=== PATIENT | female | born 1965 | race Hispanic/Latino ===

== ENCOUNTER 2016-09-02 17:12 | Emergency (ER) | payer SELFPAY ==
[2016-09-02 17:25] VITALS: TEMP 97.9; O2SAT 96
[2016-09-02] MEDS ORDERED: MAGNESIUM HYDROXIDE 30 ML UD PO ONE (17:57)
--- NOTE | 2016-09-02 18:36 | ED.PDOC ---
History of Present Illness - General Chief Complaint: Abdominal Pain Stated Complaint: lower abdominal pain radiating to right back Time Seen by Provider: 09/02/16 17:22 Source: patient Exam Limitations: no limitations - History of Present Illness Initial Comments: the patient is a 50-year-old female presenting to the emergency room secondary to right sided abdominal discomfortfor the last 4 or 5 days. Pain is somewhat roving and intermittent. No nausea or voomiting. No fever. Pain is a little worse with movement. No syncope or near-syncope. No rash. No central back pain. No recent injuries. No dysuria or frequency. No medication changes. Timing/Duration: 1 week Severity: mild Improving Factors: nothing Worsening Factors: movement Associated Symptoms: denies symptoms Allergies/Adverse Reactions: Allergies NO KNOWN ALLERGY Allergy (Verified 09/02/16 17:25) Home Medications: Ambulatory Orders ALPRAZolam [Xanax] 0.25 mg PO PRN 09/02/16 Citalopram Hydrobromide 20 mg PO DAILY 09/02/16 Glipizide 10 mg PO BID 09/02/16 Lisinopril 10 mg PO DAILY 09/02/16 Metformin HCl [Metformin HCl ER] 1,000 mg PO BID 09/02/16 Review of Systems - Review of Systems Constitutional: States: no symptoms reported EENTM: States: no symptoms reported Respiratory: States: no symptoms reported Cardiology: States: no symptoms reported Gastrointestinal/Abdominal: States: see HPI Genitourinary: States: no symptoms reported Musculoskeletal: States: no symptoms reported Skin: States: no symptoms reported Neurological: States: no symptoms reported Endocrine: States: no symptoms reported All other Systems: No Change from Baseline Past Medical History (General) - Patient Medical History Hx Congestive Heart Failure: No Hx Hypertension: Yes Hx Diabetes: No - Vaccination History Hx Influenza Vaccination: Yes - Social History Hx Tobacco Use: No Family Medical History - Family History Mother Family History: Unknown Living Status: Unknown Physical Exam - Physical Exam General Appearance: Alert, Comfortable, No apparent distress Eye Exam: bilateral normal Ears, Nose, Throat: hearing grossly normal, normal ENT inspection, normal pharynx Neck: non-tender, full range of motion, supple Respiratory: chest non-tender, lungs clear, normal breath sounds, no respiratory distress, no accessory muscle use Cardiovascular/Chest: normal peripheral pulses, regular rate, rhythm, no edema Peripheral Pulses: radial,right: 2+, radial,left: 2+, dorsalis pedis,right: 2+, dorsalis pedis,left: 2+, posterior tibialis,right: 2+, posterior tibialis,left: 2+ Gastrointestinal/Abdominal: soft, other - mild diffuse right sided discomfort palpation. No rebound or peritoneal signs. No point tenderness. 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 Lab work is reassuring. She does have some mild hematuria. X-ray shows significant constipation. Her pain clinically seems most consistent with constipation. There is a possibility of her passing a small kidney stone giving her this pain. I do recommend that she have a repeat urinalysis with her primary care doctor later this week. She was given a dose of milk of magnesia here from constipation and she should take a dose of MiraLAX daily for the next 2-3 days. ER warnings were given for any significant worsening. If she worsens rather than improves then a CT scan would be warranted. she does need to increase her fluid intake significantly and obtain tight blood sugar control. - Results/Orders Results/Orders: Laboratory Tests 09/02/16 09/02/16 09/02/16 17:27 17:29 17:38 WBC 9.2 RBC 4.78 Hgb 14.1 Hct 42.3 MCV 88.5 MCH 29.6 MCHC 33.4 RDW 14.2 Plt Count 275 MPV 7.2 L Absolute Neuts (auto) 6.90 H Absolute Lymphs (auto) 1.70 Absolute Monos (auto) 0.40 Absolute Eos (auto) 0.10 Absolute Basos (auto) 0.10 Neutrophils % 75.6 Lymphocytes % 18.6 L Monocytes % 4.0 Eosinophils % 1.0 Basophils % 0.8 Sodium Potassium Chloride Carbon Dioxide Anion Gap BUN Creatinine BUN/Creatinine Ratio Random Glucose Serum Osmolality Calcium Total Bilirubin AST ALT Alkaline Phosphatase Serum Total Protein Albumin Globulin Albumin/Globulin Ratio Urine Color Yellow Urine Appearance Clear Urine pH 6.5 Ur Specific [place] 1.015 Urine Protein Negative Urine Glucose (UA) 100 H Urine Ketones Negative Urine Blood Moderate H Urine Nitrite Negative Urine Bilirubin Negative Urine Urobilinogen 0.2 Ur Leukocyte Esterase Trace H Urine RBC 5-10 H Urine WBC 0-1 Ur Epithelial Cells 1-3 Urine Bacteria 0 Urine HCG, Qual Negative 09/02/16 17:38 WBC RBC Hgb Hct MCV MCH MCHC RDW Plt Count MPV Absolute Neuts (auto) Absolute Lymphs (auto) Absolute Monos (auto) Absolute Eos (auto) Absolute Basos (auto) Neutrophils % Lymphocytes % Monocytes % Eosinophils % Basophils % Sodium 137 Potassium 3.6 Chloride 103 Carbon Dioxide 23 Anion Gap 14.6 BUN 7 Creatinine 0.47 L BUN/Creatinine Ratio 14.9 Random Glucose 276 H Serum Osmolality 281.7 Calcium 9.1 Total Bilirubin 0.6 AST 25 ALT 26 Alkaline Phosphatase 110 Serum Total Protein 8.1 Albumin 3.8 Globulin 4.3 H Albumin/Globulin Ratio 0.9 L Urine Color Urine Appearance Urine pH Ur Specific [place] Urine Protein Urine Glucose (UA) Urine Ketones Urine Blood Urine Nitrite Urine Bilirubin Urine Urobilinogen Ur Leukocyte Esterase Urine RBC Urine WBC Ur Epithelial Cells Urine Bacteria Urine HCG, Qual x-ray of the abdomen shows significant constipation. Final read is pending at this time. No free air. No obstruction. Departure - Departure Clinical Impression: Hematuria Constipation Qualifiers: Constipation type: slow transit constipation Qualified Code(s): K59.01 - Slow transit constipation Disposition: Discharge to Home or Self Care Condition: Fair Departure Forms: ED Discharge - Pt. Copy, Patient Portal Self Enrollment Instructions: DI for Abdominal Pain-Adult Diet: diabetic diet - high-fiber low-fat Activity: increase activity as tolerated Referrals: CASSIE SNOWDEN [Primary Care Provider] - 1-5 Days Home Medications: Ambulatory Orders ALPRAZolam [Xanax] 0.25 mg PO PRN 09/02/16 Citalopram Hydrobromide 20 mg PO DAILY 09/02/16 Glipizide 10 mg PO BID 09/02/16 Lisinopril 10 mg PO DAILY 09/02/16 Metformin HCl [Metformin HCl ER] 1,000 mg PO BID 09/02/16 Additional Instructions: the patient is a 50-year-old female with around a week of right lower and lateral abdominal discomfort. Lab work is reassuring. She does have some mild hematuria. X-ray shows significant constipation. Her pain clinically seems most consistent with constipation. There is a possibility of her passing a small kidney stone giving her this pain. I do recommend that she have a repeat urinalysis with her primary care doctor later this week. She was given a dose of milk of magnesia here from constipation and she should take a dose of MiraLAX daily for the next 2-3 days. ER warnings were given for any significant worsening. If she worsens rather than improves then a CT scan would be warranted. she does need to increase her fluid intake significantly and obtain tight blood sugar control.
[2016-09-02 18:48] VITALS: BP 131/85
--- NOTE | 2016-09-02 22:56 | RAD ---
EXAM DESCRIPTION: Abdomen Series CLINICAL HISTORY: 50 years Female ,right sided abd pain 5 days COMPARISON: None. TECHNIQUE: Frontal view chest x-ray and two views of the abdomen. FINDINGS: The cardiomediastinal silhouette appears unremarkable. No consolidating infiltrates or pleural effusions. No free air is identified beneath the hemidiaphragms. No dilated loops of bowel to suggest obstruction. Out of fecal material in the colon. Phleboliths in the pelvis. IMPRESSION: Moderate fecal material in the colon. No additional evidence of acute process Electronically signed by: Kristina Campos 09/02/2016 10:55 PM CDT
== END 2016-09-02 18:48 | disposition home or self-care (01) ==
LOC: ER 17:12
DX: K59.01 Slow transit constipation (principal); R31.9 Hematuria, unspecified; I10 Essential (primary) hypertension; Z79.899 Other long term (current) drug therapy